=== PATIENT | male | born 1985 | race Caucasian/White ===

== ENCOUNTER 2019-11-02 12:16 | Outpatient (CLI) | payer OTHER ==
[~2019-11-02] VITALS: Ht 177.8 cm; Wt 95.5 kg
[2019-11-02 13:25] LABS: BASOPHILS # (AUTO) 0.04 x10^3/uL (0-0.1); BASOPHILS % (AUTO) 1 % (0-1); EOSINOPHILS # (AUTO) 0.05 x10^3/uL (0-0.4); EOSINOPHILS % (AUTO) 1 % (1-7); LYMPHOCYTES # (AUTO) 1.45 x10^3/uL (1-3.4); LYMPHOCYTES % (AUTO) 26 % (22-44); MD NO; MEAN PLATELET VOLUME 7.6 fL (7.4-10.4); MONOCYTES # (AUTO) 0.38 x10^3/uL (0.2-0.8); MONOCYTES % (AUTO) 7 % (2-9); NEUTROPHILS # (AUTO) 3.68 x10^3/uL (1.8-6.8); NEUTROPHILS % (AUTO) 66 % (42-75); PLATELET COUNT 276 x10^3/uL (130-400); RED BLOOD COUNT 5.37 x10^6/uL (4.38-5.82)
[2019-11-02 13:32] LABS: ANION GAP 6 mmol/L (5-15); CALCIUM 9.7 mg/dL (8.5-10.1); CHLORIDE 107 mmol/L (98-107); CREATININE 1.12 mg/dL (0.7-1.3)
[2019-11-02 13:35] LABS: INTERNATIONAL NORMALIZED RATIO 0.98 (0.93-1.1); PROTHROMBIN TIME 10.3 Seconds (9.6-11.5)
[2019-11-03] MEDS ORDERED: SULF1TAB24 PO (13:40)
== END 2019-11-02 23:59 | disposition home or self-care (01) ==
LOC: STAR 12:16
PROVIDERS: ATTEND Neurological Surgery
DX: Z01.818 Encounter for other preprocedural examination (principal)
CPT/HCPCS: 36415; 71046; 80048; 85025; 85610; 85730; 93005

== ENCOUNTER 2019-11-09 09:24 | Outpatient (CLI) | payer OTHER ==
[~2019-11-09 09:24] MED LIST: SULF1TAB24 PO
== END 2019-11-09 23:59 | disposition home or self-care (01) ==
LOC: RAD 09:24
PROVIDERS: ATTEND Nurse Practitioner Family
DX: Z45.2 Encounter for adjustment and management of vascular access device (principal); Z79.2 Long term (current) use of antibiotics
CPT/HCPCS: 36573; C1751

== ENCOUNTER 2019-11-10 09:55 | Inpatient (IN) | payer OTHER ==
[~2019-11-10] VITALS: Ht 175.3 cm; Wt 100.9 kg
[~2019-11-10 09:55] MED LIST changes: +BACITRACIN 50,000 UNIT ONE; +BACITRACIN OINT 500U/GM, 15 GM ONE; +BUPIVACAINE/PF 0.5% ONE; +EPINEPHRINE 1 MG/ML, 1ML ONE; +THROMBIN (RECOMBINANT) 20,000 UNIT VIAL TP ONE
[2019-11-10] MEDS ORDERED: LACTATED RINGERS 1,000 ML IV SCH (10:26)
[2019-11-10 10:27] VITALS: BP 139/100
[2019-11-10] MEDS ORDERED: FENTANYL PF 250 MCG/5ML ONE (11:07)
[2019-11-10] MEDS ORDERED: MIDAZOLAM 1 MG/ML, 2ML ONE (11:07)
[2019-11-10 11:30] VITALS: BP 148/95
[2019-11-10] MEDS ORDERED: SUCCINYLCHOLINE 20 MG/ML, 10ML ONE (12:16)
[2019-11-10] MEDS ORDERED: ROCURONIUM 10 MG/ML,10ML ONE (12:16)
[2019-11-10] MEDS ORDERED: ONDANSETRON 2MG/ML, 2ML ONE (12:16)
[2019-11-10] MEDS ORDERED: CIPROFLOXACIN 400MG/200ML PMX ONE (12:16)
[2019-11-10] MEDS ORDERED: DEXAMETHASONE 4 MG/ML, 1ML ONE (12:16)
[2019-11-10] MEDS ORDERED: PROPOFOL 10 MG/ML, 50ML ONE (12:16)
[2019-11-10] MEDS ORDERED: CEFAZOLIN 1,000 MG ONE (12:16)
[2019-11-10] MEDS ORDERED: VANCOMYCIN 1,000 MG ONE (13:13)
[2019-11-10] MEDS ORDERED: BACITRACIN 50,000 UNIT IRRIG ONE (13:30)
[2019-11-10] MEDS ORDERED: DIAZEPAM 5 MG/ML, 2ML ONE (14:16)
[2019-11-10] MEDS ORDERED: ACETAMINOPHEN 650 MG/20.3 ML UDC ONE (14:27)
[2019-11-10] MEDS ORDERED: OXYcodone 5 MG/5 ML ORAL.SOL UDC ONE (14:27)
[2019-11-10] MEDS ORDERED: HYDROmorphone 1 MG/ML, 1ML INJ ONE (14:27)
[2019-11-10] MEDS ORDERED: KETOROLAC 30 MG/1 ML IV PRN (14:30)
[2019-11-10] MEDS ORDERED: OXYcodone 5 MG/5 ML ORAL.SOL UDC PO PRN (14:30)
[2019-11-10] MEDS ORDERED: MEPERIDINE/PF 25MG/0.5ML IVPush PRN (14:30)
[2019-11-10] MEDS ORDERED: hydrALAzine 20 MG/ML, 1ML IV PRN (14:30)
[2019-11-10] MEDS ORDERED: FENTANYL PF 100 MCG/2ML IV PRN (14:30)
[2019-11-10] MEDS ORDERED: DIAZEPAM 5 MG/ML, 2ML IV PRN ×2 (14:30)
[2019-11-10] MEDS ORDERED: PROMETHAZINE 25 MG/ML, 1ML IV PRN (14:30)
[2019-11-10] MEDS ORDERED: ONDANSETRON 2MG/ML, 2ML IVPush PRN (14:30)
[2019-11-10] MEDS ORDERED: LABETALOL 5MG/ML, 20ML IV PRN (14:30)
[2019-11-10] MEDS ORDERED: ALBUTEROL SULFATE 2.5 MG/3 ML NPPB PRN (14:30)
[2019-11-10] MEDS ORDERED: METOCLOPRAMIDE 5 MG/ML, 2ML IV PRN (14:30)
[2019-11-10] MEDS ORDERED: HYDROmorphone 1 MG/ML, 1ML INJ IV PRN (14:30)
[2019-11-10] MEDS ORDERED: BACITRACIN 50,000 UNIT ONE (14:31)
[2019-11-10] MEDS ORDERED: METHOCARBAMOL 1,000 MG in DEXTROSE 5% 100 ML IV STA (14:33)
[2019-11-10] MEDS ORDERED: ACETAMINOPHEN 650 MG/20.3 ML UDC PO PRN (15:00)
[2019-11-10] MEDS ORDERED: MEPERIDINE/PF 25MG/ML,1ML ONE (15:11)
== END 2019-11-10 18:25 | disposition home or self-care (01) | DRG 858 ==
LOC: ORIP 09:55
PROVIDERS: ADMIT Neurological Surgery; ATTEND Neurological Surgery
PROC: 0RPA04Z Removal of Internal Fixation Device from Thoracolumbar Vertebral Joint, Open Approach (ICD-10-PCS; principal; 2019-11-10 12:00)
DX: T81.41XA Infection following a procedure, superficial incisional surgical site, initial encounter (principal); Y83.8 Other surgical procedures as the cause of abnormal reaction of the patient, or of later complication, without mention of misadventure at the time of the procedure; Y92.89 Other specified places as the place of occurrence of the external cause
CPT/HCPCS: 72100; S0020; 87070; 87075; 87205; J0171; J0690; J0744; J1100; J1170; J2175; J2250; J2405; J2704; J3010; J3360; J3370; J0330; J2800; J7120